=== PATIENT | female | born 1965 | race Caucasian/White ===

== ENCOUNTER 2021-01-09 08:16 | Outpatient (CLI) | payer OTHER, SELFPAY ==
--- NOTE | 2021-01-09 08:20 | MM_ITS ---
WS: [id number] BILATERAL DIGITAL SCREENING MAMMOGRAPHY WITH CAD CLINICAL INFORMATION: SCREENING HISTORY: Screening mammogram. No current complaints. COMPARISON: 018 TECHNIQUE: Bilateral CC and MLO views. FINDINGS: Bilateral breast implants appear intact. Scattered fibroglandular densities bilaterally. No suspicious focal mass, asymmetry, calcifications, or architectural distortion. No evidence of malignancy. A few punctate calcifications. MM/[place] [id number] IMPRESSION: BI-RADS: 2-Benign FOLLOW UP: 1 Year Follow-up Recommend return to annual screening mammography.
== END 2021-01-09 08:17 | disposition home or self-care (01) ==
LOC: RADSHAW 08:18
PROVIDERS: Visit Provider Nurse Practitioner Women's Health
DX: Z12.31 Encounter for screening mammogram for malignant neoplasm of breast (principal)
CPT/HCPCS: 77067

== ENCOUNTER 2021-03-20 07:12 | Emergency (ER) | payer OTHER, SELFPAY ==
[2021-03-20 07:15] VITALS: BP 168/91; PULSE 74; RESP 16; TEMP 36.4; O2SAT 99; BMI 37.8
--- NOTE | 2021-03-20 07:19 | XRR_ITS ---
PROCEDURE INFORMATION: Exam: XR Chest Exam date and time: 03/20/2021 7:26 AM Age: 55 years old Clinical indication: Angina; Patient HX: Chest pain off and on since last pm TECHNIQUE: Imaging protocol: XR of the chest. Views: 1 view. COMPARISON: No relevant prior studies available. FINDINGS: Lungs: No acute airspace disease. Pleural spaces: No pleural effusion. Heart/Mediastinum: No cardiomegaly. Bones/joints: Mild degenerative change. XR/XR chest 1V portable [id number] IMPRESSION: No acute airspace or pleural disease.
--- NOTE | 2021-03-20 07:20 | ECG_ITS ---
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 Measurements Intervals [place] Rate: 73 P: 48 [place]: 173 QRS: -10 QRSD: 92 T: 26 QT: 367 QTc: 406 Interpretive Statements SINUS RHYTHM WITH SINUS ARRHYTHMIA LOW QRS VOLTAGE IN PRECORDIAL LEADS [QRS DEFLECTION < 1.0 mV IN CHEST LEADS] No previous ECG available for comparison Electronically Signed On 03-20-2021 19:22:37 CDT by Curtis Menjivar M.D. [id number]
[2021-03-20 07:28] VITALS: O2SAT 97
--- NOTE | 2021-03-20 08:06 | W.ED.ABDPA2 ---
HPI - Abdominal Pain General: Chief Complaint: Abdominal Pain Stated Complaint: Chest Pains/Pressure Time Seen by Provider: 03/20/21 07:12 History of Present Illness: HPI narrative: 55-year-old female presents emergency room with epigastric pain radiating into the right upper quadrant and into her back. States it feels like really bad heartburn she has had similar episodes in the past but not nearly as intense. No vomiting or diarrhea no acholic growth she has not had any shortness of breath. She is not really noticed any triggering foods said yesterday began after she drank some water. MD elicited complaint: abdominal pain Onset (ago): hour(s) Pain Consistency: constant Location: Epigastric Severity: severe Quality: cramping and aching Radiation: back Migration to: RUQ Exacerbating factors: eating Relieving factors: nothing Associated Symptoms: Reports anorexia, belching, bloating, GI cramping, nausea, poor appetite and vomiting; Denies change in bowel habits, change in stool character, chills, coffee ground emesis, constipation, diarrhea, dyspepsia, dysuria, excessive flatus, fever(s), heartburn, hematochezia, hematuria, hematemesis, fecal incontinence, loose stools, melena and syncope Treatments prior to arrival: prescription analgesics Review of Systems Const: Denies: fever(s) or chills ENMT: Denies: throat pain, ear or mastoid pain, nasal discharge or nasal congestion Card: Denies: syncope Resp: Denies: dyspnea, productive cough or non-productive cough GI: Reports: nausea, vomiting, bloating, GI cramping and belching; Denies: hematemesis, coffee ground emesis, heartburn, diarrhea, constipation, excessive flatus, fecal incontinence, change in bowel habits, change in stool character, hematochezia or melena : Denies: dysuria or hematuria Skin/Breast: Denies: rash or pruritus PFSH ED PFSH: Medical History Migraine Obesity, unspecified Surgical History H/O: hysterectomy (~2008) TVH/BSO with urethral sling, [facility]. History of augmentation mammoplasty 1995: Saline, revision 2002 History of nasal sinusotomy 2005 - Dr. Abebe [facility] History of pubovaginal sling 2009 Urethral sling, completed at the time of her hysterectomy-- due to urine frequency and minor stress incontinence Family History Father Heart disease Diabetes Emphysema lung Mother Heart disease Hypertension Osteoporosis Social History Smoking and tobacco status: never smoked Second hand smoke exposure: Yes Alcohol intake: never Marital status: Current occupational status: employed Sexually active: Yes Female Reproductive History: Para: 2 Spontaneous abortions: No Physical Exam Const: COMMON NORMALS: no acute distress GENERAL APPEARANCE: cooperative and comfortable ORIENTATION/CONSCIOUSNESS: Yes awake, Yes oriented to person, Yes oriented to place and Yes oriented to time HENMT: COMMON NORMALS: normocephalic, atraumatic and hearing grossly normal bilaterally HEAD & SCALP: normocephalic and atraumatic Neck/C-Spine: COMMON NORMALS: no JVD Resp: COMMON NORMALS: normal respiratory effort, No retractions, No use of accessory muscles and clear to auscultation bilaterally AUSCULTATION: clear to auscultation bilaterally Cardio: COMMON NORMALS: no JVD, regular rate, regular rhythm and No murmurs present (Cardio) RATE: regular rate RHYTHM: regular rhythm GI: COMMON NORMALS: Soft to palpation and No hepatosplenomegaly present AUSCULTATION: Yes normoactive bowel sounds PALPATION: Yes Soft to palpation, Yes Tenderness to palpation present (GI) (epigadstric) Details: RUQ, No Guarding due to palpation present (GI) and Yes No hepatosplenomegaly present Extremity: COMMON NORMALS: normal to inspection, capillary refill normal, no clubbing, cyanosis or edema, no calf tenderness and no pedal edema Neuro: SENSORIUM/ORIENTATION: Yes oriented to person, Yes oriented to place and Yes oriented to time Skin: COMMON NORMALS: no rashes or lesions noted GENERAL SKIN EXAM: no rashes or lesions noted Course Vital Signs: Vital signs: Vital Signs Temperature 97.5 F L 03/20/21 07:15 Pulse Rate 72 03/20/21 12:18 Respiratory Rate 12 03/20/21 12:18 Blood Pressure 131/91 03/20/21 12:18 Pulse Oximetry 97 03/20/21 12:18 MDM - Abdominal Pain MDM Narrative: Medical decision making narrative: Mild cholecystitis without evidence of obstruction. She is doing better. We will discharge her home on hydrocodone and Zofran were going to get her set up for general surgery. Return if has further problems discussed dietary adjustments until she is able to have a cholecystectomy. Lab Data: Labs: Lab Results 03/20/21 03/20/21 03/20/21 Range/Units 07:40 07:40 07:40 WBC 6.4 (4.0-10.0) 10^3/ uL RBC 4.76 (4.1-5.3) 10^6/u L Hgb 15.5 H (11.5-15.3) g/dL Hct 46.6 (37.0-47.0) % MCV 97.9 (81-99) fL MCH 32.6 (28.0-34.0) pg MCHC 33.3 (30.0-36.0) g/dL RDW 12.5 (12.1-15.1) % Plt Count 239 (130-400) 10^3/c mm MPV 10.5 H (7.4-10.4) fL Neut % (Auto) 54.0 % Lymph % (Auto) 24.5 % Whitley % (Auto) 10.5 % Eos % (Auto) 8.6 % Baso % (Auto) 1.6 % Neut # (Auto) 3.45 (1.8-7.7) 10^3/u L Lymph # (Auto) 1.6 (0.8-4.8) 10^3/u L Whitley # (Auto) 0.7 (0.2-0.9) 10^3/u L Eos # (Auto) 0.6 (0.0-0.8) 10^3/u L Baso # (Auto) 0.1 (0.0-0.1) 10^3/u L Nucleated RBC % (a uto) 0 % Nucleated RBCs # 0.0 /100WBC Sodium 136 (136-145) mmol/L Potassium 4.4 (3.5-5.1) mmol/L Chloride 105 (98-107) mmol/L Carbon Dioxide 21 L (22-29) mmol/L Anion Gap 14.4 (5-19) BUN 12 (6-20) mg/dL Creatinine 0.7 (0.5-0.9) mg/dL GFR Calculation 87.5 L (90-130) mL/min Glucose 116 H (65-115) mg/dL Calculated Osmolal ity 283 L (285-295) mOsm/k g Calcium 9.1 (8.5-10.5) mg/dL Total Bilirubin 0.4 (0.15-1.2) mg/dL AST 26 (0-32) U/L ALT 39 H (0-33) U/L Alkaline Phosphata se 90 (35-105) IU/L Troponin T Baselin e 6 (0-10) ng/L Troponin T 120 Min [place] (0-10) ng/L Delta Troponin T (0-10) ABS# Total Protein 6.6 (6.6-8.7) g/dL Albumin 4.5 (3.5-5.2) g/dL Globulin 2.1 (1.3-4.6) g/dL Urine Color (Yellow) Urine Appearance (CLEAR) Urine pH (5-7) Ur Specific Gravit y (1.005-1.030) Urine Protein (Negative) Urine Glucose (UA) (Normal) Urine Ketones (Negative) Urine Blood (Negative) Urine Nitrate (Negative) Urine Bilirubin (Negative) Urine Urobilinogen (Negative) mg/dL Ur Leukocyte Lacey ase (Negative) 03/20/21 03/20/21 Range/Units 09:50 10:31 WBC (4.0-10.0) 10^3/ uL RBC (4.1-5.3) 10^6/u L Hgb (11.5-15.3) g/dL Hct (37.0-47.0) % MCV (81-99) fL MCH (28.0-34.0) pg MCHC (30.0-36.0) g/dL RDW (12.1-15.1) % Plt Count (130-400) 10^3/c mm MPV (7.4-10.4) fL Neut % (Auto) % Lymph % (Auto) % Whitley % (Auto) % Eos % (Auto) % Baso % (Auto) % Neut # (Auto) (1.8-7.7) 10^3/u L Lymph # (Auto) (0.8-4.8) 10^3/u L Whitley # (Auto) (0.2-0.9) 10^3/u L Eos # (Auto) (0.0-0.8) 10^3/u L Baso # (Auto) (0.0-0.1) 10^3/u L Nucleated RBC % (a uto) % Nucleated RBCs # /100WBC Sodium (136-145) mmol/L Potassium (3.5-5.1) mmol/L Chloride (98-107) mmol/L Carbon Dioxide (22-29) mmol/L Anion Gap (5-19) BUN (6-20) mg/dL Creatinine (0.5-0.9) mg/dL GFR Calculation (90-130) mL/min Glucose (65-115) mg/dL Calculated Osmolal ity (285-295) mOsm/k g Calcium (8.5-10.5) mg/dL Total Bilirubin (0.15-1.2) mg/dL AST (0-32) U/L ALT (0-33) U/L Alkaline Phosphata se (35-105) IU/L Troponin T Baselin e (0-10) ng/L Troponin T 120 Min [place] 6.00 (0-10) ng/L Delta Troponin T 0 (0-10) ABS# Total Protein (6.6-8.7) g/dL Albumin (3.5-5.2) g/dL Globulin (1.3-4.6) g/dL Urine Color Straw (Yellow) Urine Appearance Clear (CLEAR) Urine pH 5 (5-7) Ur Specific Gravit y 1.015 (1.005-1.030) Urine Protein Neg (Negative) Urine Glucose (UA) Norm (Normal) Urine Ketones Negative (Negative) Urine Blood Neg (Negative) Urine Nitrate Negative (Negative) Urine Bilirubin Neg (Negative) Urine Urobilinogen Norm (Negative) mg/dL Ur Leukocyte Lacey ase Negative (Negative) Discharge Plan Discharge Patient Disposition: Home Clinical Impression: Cholecystitis Condition: Stable Prescriptions: New hydrocodone-acetaminophen 5-325 mg tablet 1 tab PO Q6H PRN (Reason: pain) Qty: 25 RF: 0 Zofran 4 mg tablet 4 mg PO Q6H PRN (Reason: nausea and vomiting) Qty: 20 RF: 0 No Action fluticasone propionate 50 mcg/actuation spray,suspension 1 spray INTRANASAL BID PRN (Reason: allergy symptoms) RF: 0 cetirizine [Zyrtec] 10 mg tablet 10 mg PO DAILY PRN (Reason: allergy symptoms) RF: 0 zolmitriptan [Zomig] 5 mg tablet See Rx Instructions PO .COMPLEX Qty: 30 RF: 3 estradiol 1 mg tablet 1 mg PO DAILY 90 Days Qty: 90 RF: 4 Yuvafem 10 mcg tablet See Rx Instructions .ROUTE .COMPLEX RF: 0 Discharge Orders: Discharge ED (Routine); Ordered 03/20/21 Ordered By: Irving Gibson Discharge Diet: As Directed Discharge Activity: Increase activity as tolerated Patient Instructions: Opioid Safety Coding Level of Care Code ED Director Of Software Development for Marie Fwd Exam Comprehensive
--- NOTE | 2021-03-20 08:12 | US_ITS ---
WS: [id number] RIGHT UPPER QUADRANT ULTRASOUND HISTORY: abd pain COMPARISON: None available. Liver: 19.4 cm in length. Markedly enlarged liver with decreased attenuation and coarsened echotextur e. Loss of the normal portal triads. Gallbladder: Slightly contracted gallbladder with stones and sludge. CBD: 0.5 cm Pancreas: Poorly visualized. Right kidney: 9.9 cm in length. Normal size and echogenicity. No hydronephrosis or mass. Aorta and IVC: Unremarkable abdominal aorta and IVC. No ascites. US/US gall bladder [id number] IMPRESSION: 1. Contracted gallbladder with stones and sludge. Findings suspicious for acut e cholecystitis. No bile duct dilatation. 2. Marked hepatomegaly and hepatic steatosis.
[2021-03-20 08:15] LABS: Basophils # 0.1 10^3/uL (0.0-0.1); Basophils % 1.6 %; Eosinophils # 0.6 10^3/uL (0.0-0.8); Eosinophils % 8.6 %; Hematocrit 46.6 % (37.0-47.0); Hemoglobin 15.5 g/dL (11.5-15.3); Lymphocytes # 1.6 10^3/uL (0.8-4.8); Lymphocytes % 24.5 %; Mean Corpuscular HGB Conc 33.3 g/dL (30.0-36.0); Mean Corpuscular Hemoglobin 32.6 pg (28.0-34.0); Mean Corpuscular Volume 97.9 fL (81-99); Mean Platelet Volume 10.5 fL (7.4-10.4); Monocytes # 0.7 10^3/uL (0.2-0.9); Monocytes % 10.5 %; Neutrophils # 3.45 10^3/uL (1.8-7.7); Nucleated Red Blood Cells % 0 %; Platelet Count 239 10^3/cmm (130-400); Red Blood Count 4.76 10^6/uL (4.1-5.3); Red Cell Distribution Width 12.5 % (12.1-15.1); White Blood Count 6.4 10^3/uL (4.0-10.0)
[2021-03-20 08:43] LABS: Alanine Aminotransferase 39 U/L (0-33); Albumin Level 4.5 g/dL (3.5-5.2); Alkaline Phosphatase 90 IU/L (35-105); Aspartate Amino Transferase 26 U/L (0-32); Blood Urea Nitrogen 12 mg/dL (6-20); Calcium 9.1 mg/dL (8.5-10.5); Carbon Dioxide 21 mmol/L (22-29); Chloride 105 mmol/L (98-107); Globulin 2.1 g/dL (1.3-4.6); Glomerular Filtration Rate 87.5 mL/min (90-130); Glucose 116 mg/dL (65-115); Osmolality Calculated 283 mOsm/kg (285-295); Sodium 136 mmol/L (136-145); Total Bilirubin 0.4 mg/dL (0.15-1.2); Total Protein 6.6 g/dL (6.6-8.7)
[2021-03-20 08:46] LABS: Troponin(5th) Baseline 6 ng/L (0-10)
[2021-03-20 08:51] LABS: Anion Gap 14.4 (5-19); Potassium 4.4 mmol/L (3.5-5.1)
--- NOTE | 2021-03-20 09:03 | CT_ITS ---
WS: [id number] CT ABDOMEN AND PELVIS WITH CONTRAST HISTORY: Abdominal pain with pressure. TECHNIQUE: Imaging performed of the abdomen and pelvis with IV contrast. Single phase imaging of the abdomen. Coronal and sagittal reformats are submitted. All CT scans at [facility] use at least one of these dose optimization techniques: automated exposure control; mA and/or kV adjustment per patient size (includes targeted exams where dose is matched to clinical indication); or iterativ e reconstruction. IV CONTRAST: Omnipaque 300; 95 mL IV. Oral contrast: No DLP: 1848.69 mGy.cm COMPARISON: Gallbladder ultrasound 03/20/2021. Lower thorax: Lung bases are clear. Heart is normal size. No hiatal hernia. Bilateral breast implants . Liver/biliary system: Moderate hepatomegaly. Liver size is not as significant by CT as seen on the ul trasound. There is mild hepatic steatosis. No bile duct dilatation. Normal portal vein. Gallbladder: Gallbladder is lobulated. There is mild hyperemia of portions of the gallbladder wall. T he sludge and stones identified by ultrasound are not as apparent. Pancreas: Normal size pancreas and pancreatic duct. No adjacent inflammation. Spleen: Normal size spleen. No mass or infarct. Adrenal glands: Normal. Right kidney: Normal. Left kidney: Normal. Aorta: Normal. Lymphadenopathy: None. Free fluid: None. GI tract: Nondistended stomach. No GI tract obstruction. The appendix is normal. No mucosal thickenin g or edema. No significant diverticular disease. Abdominal wall: Small fat-containing umbilical hernia. Pelvis: No free fluid or adenopathy within the pelvis. Prior hysterectomy. Bones: Unremarkable. CT/CT abdomen pelvis w con* [id number] IMPRESSION: 1. No biliary duct dilatation. 2. Mild hyperemia involving the gallbladder wall. The stones and sludge seen o n the recent ultrasound are not as apparent by CT. Findings still suspicious fo r mild acute cholecystitis. 3. Moderate hepatic steatosis and hepatomegaly. 4. Normal appendix.
--- NOTE | 2021-03-20 09:20 | ECG_ITS ---
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 Measurements Intervals [place] Rate: 61 P: 13 SC: 178 QRS: -11 QRSD: 76 T: 15 QT: 392 QTc: 395 Interpretive Statements SINUS RHYTHM WITH SINUS ARRHYTHMIA MINIMAL VOLTAGE CRITERIA FOR LVH, CONSIDER NORMAL VARIANT [MEETS CRITERIA IN ONE OF: R(aVL), S(V1), R(V5), R(V5/V6)+S(V1)] Compared to ECG 03/20/2021 07:23:05 No significant changes Electronically Signed On 03-20-2021 19:25:55 CDT by Curtis Menjivar M.D. [id number]
[2021-03-20 09:46] VITALS: BP 105/70; PULSE 70; RESP 23; O2SAT 100
[2021-03-20 10:13] LABS: Add Urine Microscopic? NO; Charge for UA Resulting for Rev
[2021-03-20] MEDS: iohexol 300 mg/mL 100 mL Btl IV (10:18)
[2021-03-20 10:28] LABS: Bilirubin Urine Neg (Negative); Blood Urine Neg (Negative); Glucose Urine UA Norm (Normal); Ketones Urine Negative (Negative); Leukocyte Esterase Urine Negative (Negative); Nitrate Urine Negative (Negative); Protein Urine Neg (Negative); Specific Gravity, Urine 1.015 (1.005-1.030); Urine Appearance Clear (CLEAR); Urine Color Straw (Yellow); Urobilinogen Urine Norm (Negative); pH Urine 5 (5-7)
[2021-03-20 10:48] VITALS: BP 121/82; PULSE 78; RESP 12; O2SAT 99
[2021-03-20 10:55] LABS: Troponin 5 2HR Delta 0 ABS# (0-10)
--- NOTE | 2021-03-20 12:09 | DCPLANNER ---
biofuels plant manager had message to schedule a follow up appointment for patient with general surgery for cholecystitis. biofuels plant manager emailed patients information to both Reina and Lesvia at [facility] General Surgery. Patients information will be printed and reviewed. Clinic will call patient with appointment information.
[2021-03-20 12:18] VITALS: BP 131/91; PULSE 72; RESP 12; O2SAT 97
--- NOTE | 2021-03-21 14:25 | DCPLANNER ---
Patient has a follow up appointment scheduled for Friday, March 26, 2021 at 3:[address] Liz. Clinic will call patient with appointment information.
--- NOTE | 2021-05-28 08:03 | DCPLANNER ---
Patient had a follow up appointment scheduled for 03.26.[address] Liz at general surgery - patient did attend appointment.
== END 2021-03-20 12:20 | disposition home or self-care (01) ==
PROVIDERS: Emergency Provider Family Medicine
DX: K81.9 Cholecystitis, unspecified (principal); Z77.22 Contact with and (suspected) exposure to environmental tobacco smoke (acute) (chronic)
CPT/HCPCS: 71045; 74177; 76705; 80053; 81003; 84484; 85025; 93005; 99284; Q9967

== ENCOUNTER → 2021-03-27 08:18 | Outpatient (BNVA) | payer OTHER, SELFPAY | PROVIDERS: Visit Provider Surgery | DX: Z20.822 Contact with and (suspected) exposure to COVID-19 (principal); K81.9 Cholecystitis, unspecified | CPT/HCPCS: 87635 ==

== ENCOUNTER 2021-03-29 10:38 | Day surgery (SDC) | payer OTHER, SELFPAY ==
[2021-03-28 13:49] VITALS: BMI 39.4
--- NOTE | 2021-03-29 11:03 | P.ANESASSM_ITS ---
Pre-Anesthetic Assessment Pre-Anesthetic Assessment: Height/Weight: Height 1.63 m Weight 104.326 kg Preop Diagnosis: cholelithiasis Proposed Procedure: Operation Date: 03/29/21 12:00 Proposed Procedures p Laparoscopic Cholecystectomy 72523 K81.9(Not Applicable) - Adrian Liz MD Was Beta Maria Del Rosario taken within 24 hours: N/A Was Clonidine taken within 24 hours: N/A Last intake: Intake Last Liquid Date 03/28/21 Last Liquid Time 21:30 Last Solid Date 03/28/21 Last Solid Time 19:00 Social: Social History: No alcohol and No tobacco Exam: Pre-Anes Outpt Exam: alert, oriented x 3, clear to auscultation bilaterally and regular rate & rhythm Airway: Submandibular: WNL Cervical ROM: WNL MP: 2 Pulmonary: Pulmonary: None reported CV/HEM: Comments: Palpitations : Comments: Cystitis Hepatic: Hepatic: None reported GI: GI: None reported Neuropsych: Neuropsych: MILLER (migraine ) Anesthetic Plan: ASA status: 2 Anesthesia: General PFSH Anesthesia PFSH: Medical History Migraine Surgical History H/O: hysterectomy (~2008) TVH/BSO with urethral sling, [facility]. History of augmentation mammoplasty 1994: Saline, revision 2001 History of nasal sinusotomy 2004 - Dr. Abebe, [facility] History of pubovaginal sling 2009 Urethral sling, completed at the time of her hysterectomy-- due to urine frequency and minor stress incontinence Family History Father Heart disease Diabetes Emphysema lung Mother Heart disease Hypertension Osteoporosis Social History Smoking and tobacco status: never smoked Second hand smoke exposure: Yes Alcohol intake: never Marital status: Current occupational status: employed Sexually active: Yes Female Reproductive History: Para: 2 Spontaneous abortions: No Data Anesthesia Cardiac Studies: No Data to Display
--- NOTE | 2021-03-29 11:04 | W.PM.OPSUD ---
Surgery/Procedure H&P Update DATE OF PROCEDURE: March 29, 2021 DATE H&P PERFORMED: 03/26/21 H&P UPDATE INFORMATION: I have reviewed H&P completed within last 30 days, I have examined patient prior to procedure and No changes to prior documentation PREOP DIAGNOSIS: cholelithiasis PLANNED PROCEDURE: Operation Date: 03/29/21 12:00 Proposed Procedures p Laparoscopic Cholecystectomy 30432 K81.9(Not Applicable) - Adrian Liz MD
[2021-03-29] MEDS: sodium chloride 0.9% 1,000 ML 30 ML IV (11:18)
[2021-03-29] MEDS: scopolamine 1.5 Patch 1 PATCH TRANSDERMA (11:18)
[2021-03-29] MEDS: ondansetron 2 mg/ML SDV 2 mL 4 MG IVP (11:18)
[2021-03-29 11:19] VITALS: BP 151/100; PULSE 76; RESP 18; TEMP 36.4; O2SAT 96
--- NOTE | 2021-03-29 13:52 | P.OP_ITS ---
Operative Report Date of procedure: March 29, 2021 Pre-op Diagnosis: Cholelithiasis Post-op diagnosis: same Procedure Done: Laparoscopic cholecystectomy Specimens removed/disposition: Gallbladder Surgeon: Adrian Liz Anesthesia: General Condition: stable Disposition: PACU Procedure: The patient was taken to the operating room and was intubated under general anesthesia. After the antibiotic had been administered, the abdomen was prepped and draped in a sterile manner. Using a #15 blade, a 1 centimeter infraumbilical curvilinear incision was made and using an open Jenaro technique the peritoneal cavity was entered. A 10 millimeter port was placed and 15 millimeters of pneumoperitoneum was created. A 10 millimeter, 30 degrees scope was then introduced. Three 5 millimeter ports were placed in the epigastric, midclavicular and the anterior axillary line two fingerbreadths below the costal margin on the right side under the direct visualization. Ratcheted forceps were introduced into the lateral most port and was used to retract the fundus of the gallbladder cephalad and using forceps the infundibulum of the gallbladder was retracted laterally. Using L-hook cautery the peritoneum overlying the Calot's triangle was opened medially and laterally until the cystic duct and the cystic artery were skeletonized. Dissection was carried along the body of the gallbladder and after ensuring critical view of safety, 4 clips applied on the cystic duct and 3 clips applied on the cystic artery and cut leaving, 3 clips on the remaining portion of the duct and 2 clips on the remaining portion of the artery. The rest of the gallbladder was dissected off the liver using L-hook cautery. There was no bleeding or bile leaking noted from the gallbladder fossa and the clips appeared to be in place. An EndoCatch bag was introduced to r emove the gallbladder. All the ports were removed under direct visualization and there was no bleeding noted from the port sites. The fascia of the umbilicus was closed using [id number] 0 Vicryl sutures and the subcutaneous tissue was approximated using 3-0 Vicryl sutures. The skin at all four ports were closed using 4-0 Monocryl and Dermabond. A total of 10 millimeters of 0.5% Marcaine was infiltrated around the port sites. The patient was stable throughout the procedure.
[2021-03-29 14:04] VITALS: BP 141/74; PULSE 91; RESP 20; TEMP 36.6; O2SAT 98
[2021-03-29 14:10] VITALS: BP 144/80; PULSE 71; RESP 18; O2SAT 100
[2021-03-29 14:15] VITALS: BP 143/83; PULSE 70; RESP 20; TEMP 36.6; O2SAT 97
[2021-03-29 14:20] VITALS: BP 140/92; PULSE 70; RESP 18; TEMP 36.6; O2SAT 97
--- NOTE | 2021-03-29 14:40 | ANE.PACU2 ---
Inpatient post-anesthesia follow up: Airway intact: Yes Vital signs: Temperature 97.9 F Pulse Rate 70 Respiratory Rate 18 Blood Pressure 140/92 Pulse Oximetry 97 Oxygen Delivery Me thod Room Air Oxygen Flow Rate 6 Fraction of Inspir ed Oxygen Hydration adequate: Yes Nausea and vomiting: No Pain level: 3 Mental status: Baseline
[2021-03-29] MEDS: HYDROcodone-acetaminophen 5-325 mg Tablet 1 TAB PO (14:48)
[2021-03-29 15:18] VITALS: BP 145/85; PULSE 63; RESP 18; O2SAT 97
== END 2021-03-29 15:50 | disposition home or self-care (01) ==
PROVIDERS: Visit Provider Surgery
PROC: 0FT44ZZ Resection of Gallbladder, Percutaneous Endoscopic Approach (ICD-10-PCS; CPT 47562; principal; 2021-03-29 11:50)
DX: K80.10 Calculus of gallbladder with chronic cholecystitis without obstruction (principal)
CPT/HCPCS: 47562; 88304; 96365; 96374; J0690; J1100; J2405; J2704; J2710; J3010; J3490; J7030

== ENCOUNTER → 2021-06-12 10:07 | Outpatient (BNVA) | payer OTHER, SELFPAY | PROVIDERS: Visit Provider Nurse Practitioner Women's Health | DX: R30.0 Dysuria (principal) | CPT/HCPCS: 81000; 87086 ==

== ENCOUNTER → 2021-08-07 08:56 | Outpatient (BNVA) | payer OTHER, SELFPAY | PROVIDERS: Visit Provider Obstetrics & Gynecology | DX: R30.0 Dysuria (principal) | CPT/HCPCS: 81000; 87077; 87086; 87184 ==

== ENCOUNTER 2021-09-14 12:51 | Outpatient (CLI) | payer OTHER, SELFPAY ==
--- NOTE | 2021-09-14 13:03 | MM_ITS ---
WS: [id number] DIAGNOSTIC RIGHT DIGITAL MAMMOGRAM with displacement views and CAD RIGHT breast ultrasound, limited HISTORY: RIGHT BREAST LUMP COMPARISON: 01/09/2021, 02/25/2018 Technique: CC, MLO and ML views. Spot compression RIGHT CC. Breast composition: There are scattered areas of fibroglandular density. Implants are intact. Partia l calcification around the implant. Triangular marker is noted in the upper outer quadrant RIGHT [address]. No underlying abnormality is identified. There is dense calcification adjacent to the capsular im plant which could be the palpable area. No suspicious calcifications. RIGHT breast ultrasound, limited. Ultrasound is directed to the area of palpable abnormality. There is no mass or shadowing. No cystic or solid change. MM/[place] [id number] IMPRESSION: BI-RADS: 2-Benign FOLLOW UP: 1 Year Follow-up
== END 2021-09-14 12:52 | disposition home or self-care (01) ==
PROVIDERS: PCP Nurse Practitioner Women's Health; Visit Provider Nurse Practitioner Women's Health
DX: N63.11 Unspecified lump in the right breast, upper outer quadrant (principal); Z98.82 Breast implant status
CPT/HCPCS: 76642; 77065

== ENCOUNTER → 2021-09-18 12:20 | Outpatient (BNVA) | payer OTHER, SELFPAY | PROVIDERS: PCP Nurse Practitioner Women's Health; Visit Provider Nurse Practitioner Women's Health | DX: Z20.828 Contact with and (suspected) exposure to other viral communicable diseases (principal) | CPT/HCPCS: 87426 ==

== ENCOUNTER → 2021-09-26 09:38 | Outpatient (BNVA) | payer OTHER, SELFPAY | PROVIDERS: PCP Nurse Practitioner Women's Health; Visit Provider Nurse Practitioner Family | DX: R05.9 Cough, unspecified (principal); R06.02 Shortness of breath | CPT/HCPCS: 71046; 80053 ==

== ENCOUNTER 2021-11-01 20:00 | Outpatient (CLI) | payer OTHER, SELFPAY | END 2021-11-01 20:01 | disposition home or self-care (01) | LOC: SLEEP 11-05 08:19 | PROVIDERS: PCP Nurse Practitioner Women's Health; Visit Provider Nurse Practitioner Family | DX: G47.33 Obstructive sleep apnea (adult) (pediatric) (principal); Z99.89 Dependence on other enabling machines and devices | CPT/HCPCS: 95811 ==

== ENCOUNTER 2022-10-09 07:43 | Outpatient (CLI) | payer OTHER, SELFPAY ==
--- NOTE | 2022-10-09 07:50 | MM_ITS ---
WS: [id number] BILATERAL SCREENING DIGITAL BREAST MAMMOGRAPHY WITH ANA DISPLACEMENT VIEWS. CAD PERFORMED. HISTORY: SCREENING COMPARISON: 09/14/2021, 01/09/2021 and 02/25/2018 Bilateral craniocaudal and mediolateral oblique views are performed with tomosynthesis and SM. Ana displacement views in CC and MLO projection also performed. Breasts composition: The breasts are heterogeneously dense, which may obscure small masses. Retropec yancy implants are intact. No capsular contraction. No suspicious mass or calcification. MM/[place] [facility] [place] [id number] IMPRESSION: BI-RADS: 2-Benign FOLLOW-UP: 1 Year Follow-up
== END 2022-10-09 07:44 | disposition home or self-care (01) ==
LOC: RAD 07:44
PROVIDERS: PCP Nurse Practitioner Family; Visit Provider Nurse Practitioner Family
DX: Z12.31 Encounter for screening mammogram for malignant neoplasm of breast (principal)
CPT/HCPCS: 77063; 77067

== ENCOUNTER → 2023-04-14 09:20 | Outpatient (BNVA) | payer OTHER, SELFPAY | PROVIDERS: PCP Nurse Practitioner Family; Visit Provider Nurse Practitioner Family | DX: N95.1 Menopausal and female climacteric states (principal); I10 Essential (primary) hypertension; G43.909 Migraine, unspecified, not intractable, without status migrainosus; Z83.3 Family history of diabetes mellitus; E55.9 Vitamin D deficiency, unspecified; R63.8 Other symptoms and signs concerning food and fluid intake; R53.83 Other fatigue; J32.0 Chronic maxillary sinusitis; E66.9 Obesity, unspecified; K04.7 Periapical abscess without sinus | CPT/HCPCS: 80053; 80061; 82306; 83036; 84439; 84443; 84481 ==

== ENCOUNTER → 2023-09-09 09:38 | Outpatient (BNVA) | payer OTHER, SELFPAY | PROVIDERS: PCP Nurse Practitioner Family; Visit Provider Nurse Practitioner Family | DX: R00.2 Palpitations (principal); G43.909 Migraine, unspecified, not intractable, without status migrainosus; I10 Essential (primary) hypertension; E55.9 Vitamin D deficiency, unspecified | CPT/HCPCS: 80053; 80061; 82306 ==

== ENCOUNTER → 2024-06-28 10:22 | Outpatient (BNVA) | payer BC, SELFPAY | PROVIDERS: PCP Nurse Practitioner Family; Visit Provider Nurse Practitioner Family | DX: I10 Essential (primary) hypertension (principal) | CPT/HCPCS: 80053; 85025 ==

== ENCOUNTER → 2024-07-01 10:24 | Outpatient (BNVA) | payer BC, SELFPAY | PROVIDERS: PCP Nurse Practitioner Family; Visit Provider Internal Medicine Cardiovascular Disease | DX: Z41.9 Encounter for procedure for purposes other than remedying health state, unspecified (principal); R94.31 Abnormal electrocardiogram [ECG] [EKG]; E66.9 Obesity, unspecified | CPT/HCPCS: 93005 ==

== ENCOUNTER → 2024-08-26 11:57 | Outpatient (BNVA) | payer BC, SELFPAY | PROVIDERS: PCP Nurse Practitioner Family; Visit Provider Nurse Practitioner Family | DX: I10 Essential (primary) hypertension (principal) | CPT/HCPCS: 80053; 85025 ==

== ENCOUNTER 2024-10-26 11:20 | Outpatient (CLI) | payer BC, SELFPAY ==
--- NOTE | 2024-10-26 | MM_ITS ---
WS: [id number] Bilateral screening 3D tomosynthesis digital mammogram, 10/26/2024 11:39 AM Clinical Data: ANNUAL SCREENING Comparison: 10/09/2022, 09/14/2021, 01/09/2021, 02/25/2018, 02/24/2017, 02/07/2016, 03/30/2009. Findings: No spiculated masses or clustered calcifications are seen. There are no secondary signs of carcinoma . The augmentation mammoplasty implants are intact. MM/MM scr BI tomosynthesis [id number] Impression: Negative bilateral mammogram unchanged. Recommend annual screening mammograms. BIRADS: 2 - Benign. FOLLOW UP: 1 Year Follow-up DENSITY: There are scattered areas of fibroglandular density. The CAD food checkers and cashiers supervisor was used
== END 2024-10-26 11:36 | disposition home or self-care (01) ==
PROVIDERS: PCP Electrodiagnostic Medicine; Visit Provider Electrodiagnostic Medicine
DX: Z12.31 Encounter for screening mammogram for malignant neoplasm of breast (principal); Z98.82 Breast implant status
CPT/HCPCS: 77063; 77067

== ENCOUNTER 2025-05-09 10:24 | Day surgery (SDC) | payer OTHER, SELFPAY ==
[2025-05-09] VITALS (16 sets, daily range): BP systolic 86–151; BP diastolic 49–81; PULSE 81–130; RESP 12–27; TEMP 36.2–37.1; O2SAT 92–98
--- OUTSIDE RECORDS SUMMARY | 2025-05-09 10:32 | XMS_ITS | Encounter Summary ---
Author Organization [facility] Address [address] [place] [address] Care Team Providers Care Sourcing Engineer Name Role Phone Unavailable Primary Care Provider Unavailabl e Encounter Details Date Type Department Care Team (Late st Contact Info) Description 07/08/2024 Abstract [facility] Operating Room [address] [address] [place] [address] Puma Chang MD [address] [address] Social History Tobacco Use Types Packs/Day Years Used Date Smoking Tobacco: Never Assessed Comments Unknown Sex and Gender Information Value Date Recorded Sex Assigned at Not on file Legal Sex Female 12:54 PM CDT Gender Identity Not on file Sexual Orientation Not on file documented as of this encounter Plan of Treatment Not on file documented as of this encounter Visit Diagnoses Not on filedocumented in this encounter
--- OUTSIDE RECORDS SUMMARY | 2025-05-09 10:32 | XMS_ITS | Clinical Summary ---
Author Organization [facility] Address [address] [place] [address] Phone Care Team Providers Care Air Valve Repairer Name Role Phone Unavailable Primary Care Provider Unavailabl e Allergies No known active allergies Medications cetirizine (ZyrTEC) 10 mg tablet Take 10 mg by mouth daily. Active ZOLMITRIPTAN ORAL Take 5 mg by mouth 1 time daily as needed for Other (See Comment) (migranes). Active lisinopriL (PRINIVIL) 10 mg tablet Take 10 mg by mouth daily. Active HYDROcodone-cherie taminophen 2.5-108 mg/5 mL SolutionIndicat ions:Post-op pain Take 15 mL by mouth every 6 hours as needed for Pain, Severe. Max Daily Amount: 60 mL 300 mL 08/24/2024 1:27 PM CDT 08/23/2024 Active ondansetron (ZOFRAN ODT) 4 mg Tablet, Rapid Dissolve Take 1 Tablet (4 mg) by mouth every 8 hours as needed for Nausea. Dissolve tablet on top of tongue, then swallow with saliva. 28 Tablet 08/24/2024 1:27 PM CDT 08/23/2024 Active Active Problems Problem Noted Date Diagnosed Date Class 2 severe obesity due t o excess calories with serious comorbidity and body mass index (BMI) of 38.0 to 38.9 in adult 08/23/2024 Post-operative nausea and vomiting 08/23/2024 Post-operative pain 08/23/2024 History of seasonal allergies 08/23/2024 General medical exam 08/23/2024 Hypertension Migraine Obstructive sleep apnea Overview (08/23/2024): cpap Encounters Date Type Department Care Team Description 04/27/2025 External Device Data STL ABSTRACTION Provider, Abstract 04/26/2025 External Device Data STL ABSTRACTION Provider, Abstract 04/12/2025 External Device Data STL ABSTRACTION Provider, Abstract 03/31/2025 External Device Data STL ABSTRACTION Provider, Abstract 03/31/2025 External Device Data STL ABSTRACTION Provider, Abstract 03/30/2025 External Device Data STL ABSTRACTION Provider, Abstract 03/29/2025 External Device Data STL ABSTRACTION Provider, Abstract 02/22/2025 External Device Data STL ABSTRACTION Provider, Abstract from Last 3 Months Immunizations Immunization Administration Dates Next Due (TDVAX)(7 YRS UP) TETANUS AN D DIPHTHERIA TOXOIDS, ADSORBED (2 LF OF TETANUS TOXOID AND 2 LF OF DIPHTHERIA TOXOID), 0.5ML (PF), IM 06/21/1998 Social History Tobacco Use Types Packs/Day Years Used Date Smoking Tobacco: Never Smokeless Tobacco: Never Tobacco Cessation:Counseling Given: Not Answered Alcohol Use Standard Drinks/Week Comments Not Currently 0 (1 standard drink = 0.6 oz pur e alcohol) Feeling Safe Answer Date Recorded Are you in a relationship wi th someone who hurts you emotionally and/or physically? No 08/23/2024 Food Insecurity Answer Date Recorded Patient needs follow up regardin 03/03/2025 Transportation Needs Answer Date Record ed Patient needs follow up regardin 03/03/2025 Housing Stability Answer Date Recorded Social/Environmental Concerns No concerns Utility Needs Answer Date Recorded Patient needs follow up regardin 03/03/2025 Comments No Sex and Gender Information Value Date Recorded Sex Assigned at Not on file Legal Sex Female 12:54 PM CDT Gender Identity Not on file Sexual Orientation Not on file Last Filed Vital Signs Vital Sign Reading Time Taken Comments Blood Pressure 96/52 08/24/2024 8:13 AM CDT Pulse 49 08/24/2024 8:13 AM CDT Rn no tified Temperature 36.9 C (98.4 F) 08/24/2024 8:13 AM CDT Respiratory Rate 16 08/24/2024 8:13 AM CDT Oxygen Saturation 98% 08/24/2024 4:41 AM CDT Inhaled Oxygen Concentration - - Weight 98.4 kg (217 lb) 08/23/2024 11:42 AM CDT Height 160 cm (5' 3 ) 08/23/2024 11:42 AM CDT Body Mass Index 38.44 08/23/2024 11:42 AM CDT Plan of Treatment Health Maintenance Due Date Last Done Comments Pre-Diabetes and Diabetes Screening 1965 HEPATITIS B VACCINES (1 of 3 - 19+ 3-dose series) 02/1986 HPV/Cotest (21-29) 1988 CERVICAL CANCER SCREENING 1997 HPV/Cotest (30-65) 1997 PAP SMEAR 1997 DTAP/TDAP/TD VACCINES (1 - Tdap) 06/22/1998 06/21/19 98 BREAST CANCER SCREENING 2007 COLORECTAL SCREENING 2012 Colorectal Cancer Screening 2012 FIT-DNA Q 3 years 2012 FIT/FOBT Q 1 year 2012 Flex Sig/CT Colonography Q 5 years 2012 ZOSTER VACCINE (1 of 2) 2017 INFLUENZA VACCINE (#1) 2024 COVID-19 Vaccine ( season) 07/11/202410/2023 Medical Devices Implanted Type Area Bottomer Operator Device Identifier Shelf Expiration Date Model / Serial / Lot Seamguard Endogia 60 Blk [id number] - [id number] Implanted:Qt y: 1 on 08/23/2024 by Puma Chang MD at [facility] Biological N/A: Stomach [employer] [id number] 01/14/2027 12BSGTRI 60B / / [id number] Seamguard Endogia 60 Blk [id number] - [id number] Implanted:Qt y: 1 on 08/23/2024 by Puma Chang MD at [facility] Biological N/A: Stomach [employer] [id number] 01/14/2027 12BSGTRI 60B / / [id number] Seamguard Endogia 60 Prpl [id number] - [id number] Implanted:Qt y: 1 on 08/23/2024 by Puma Chang MD at [facility] Biological N/A: Stomach [employer] [id number] 01/06/2027 12BSGTRI 60P / / [id number] Seamguard Endogia 60 Prpl [id number] - [id number] Implanted:Qt y: 1 on 08/23/2024 by Puma Chang MD at [facility] Biological N/A: Stomach [employer] [id number] 01/06/2027 12BSGTRI 60P / / [id number] Seamguard Endogia 60 Prpl [id number] - [id number] Implanted:Qt y: 1 on 08/23/2024 by Puma Chang MD at [facility] Biological N/A: Stomach [employer] [id number] 01/06/2027 12BSGTRI 60P / / [id number] Claims Account Specialist Endoclip Iii 5mm W/Cliplogic [id number] - [id number] Implanted:Qt y: 1 on 08/23/2024 by Puma Chang MD at [facility] Clip N/A: Stomach [employer] [id number] 05/09/2027 [id number] / / [id number] Breast Insurance RX [facility] Commercial Advance Directives For more information, please contact: [phone] * Full Code (Latest Code Status on File) Date Activated Date Inactivated Comments 08/23/2024 5:47 AM 08/24/2024 4:42 PM
--- OUTSIDE RECORDS SUMMARY | 2025-05-09 10:32 | XMS_ITS | Data Portability ---
Author Organization [facility] Addison Ledesma [facility] [place] Dick, [facility] Address [address] [address] Assessment Encounter Date Assessment Date Assessment LastModified by Organization Details LastModified Time 10/20/2024 10/20/2024 Document scribed by Matteo Rojas Parker. I was present during interview and exam. I have reviewed and agree with above documentation . Dr. Faizan Levy. [email or web address] Not available 10/20/2024 09:52:39 Plan of Treatment Reminders Order Date Submit Date Provider Last Modified By Organization Details Last Modified Time Details Appointments None recorded. Lab urinalysis, complete 2023 dmorrison 47 [facility], [address] [facility], [facility] [address], [place], [address], 4 16:20:27 culture, urine 2023 [facility], [address] [facility] [address] [address], [facility] [address] [place], [address], 4 02:14:44 Referral None recorded. Procedures None recorded. Surgeries None recorded. Imaging MAMMO, screening, bilateral 2023 [facility], [address] [place], [address], 4 08:48:56 Medication Orders zolmitripta n 5 mg disintegrat ing tablet 2023 [facility], [facility] [place], [address] [place], [address], 15:21:02 Patient TargetsNo targets recorded. Patient InstructionsNo instructions recorded. Reason for Referral None Reported. Results Created Date Observation Date Name Description Value Unit Range Abnormal Flag Note LastModifiedBy Organization Detail LastModifiedTime 10/20/20 24 10/20/2024 URINA LYSIS WITH MICRO color YELLOW Not Available [facility] [address], [place], [address], 10/20/2024 10:07:35 10/20/20 24 10/20/2024 URINA LYSIS WITH MICRO clarity CLEAR Not Available [facility] [address] [facility] [address], [place], [address], 10/20/2024 10:07:35 10/20/20 24 10/20/2024 URINA LYSIS WITH MICRO glu NEGATI VE Not Available [facility] [address] [facility] [address], [place], [address], 10/20/2024 10:07:35 10/20/20 24 10/20/2024 URINA LYSIS WITH MICRO bili NEGATI VE Not Available [facility] [address] [facility], [place], [address], 10/20/2024 10:07:35 10/20/20 24 10/20/2024 URINA LYSIS WITH MICRO ket NEGATI VE Not Available [facility] [address], [place], [address], 10/20/2024 10:07:35 10/20/20 24 10/20/2024 URINA LYSIS WITH MICRO S.g 1.025 1.005- 1.025 Not Available [facility] [address], [place], [address], 10/20/2024 10:07:35 10/20/20 24 10/20/2024 URINA LYSIS WITH MICRO pH 7.0 5.0-7. 0 Not Available [facility] [address], [place], [address], 10/20/2024 10:07:35 10/20/20 24 10/20/2024 URINA LYSIS WITH MICRO pro NEGATI VE Not Available [facility] [address], [place], [address], 10/20/2024 10:07:35 10/20/20 24 10/20/2024 URINA LYSIS WITH MICRO uro 0.2 E.U./D L Not Available [facility] [address], [place], [address], 10/20/2024 10:07:35 10/20/20 24 10/20/2024 URINA LYSIS WITH MICRO nit NEGATI VE Not Available [facility] [address], [place], [address], 10/20/2024 10:07:35 10/20/20 24 10/20/2024 URINA LYSIS WITH MICRO blo NEGATI VE Not Available [facility] [address], [place], [address], 10/20/2024 10:07:35 10/20/20 24 10/20/2024 URINA LYSIS WITH MICRO kathi NEGATI VE Not Available [facility] [address], [place], [address], 10/20/2024 10:07:35 10/20/20 24 10/20/2024 URINA LYSIS WITH MICRO WBC 1-3 abnormal Not Available [facility] [address], [place], [address], 10/20/2024 10:07:35 10/20/20 24 10/20/2024 URINA LYSIS WITH MICRO RBC 0-1 Not Available [facility] [address] [facility] [address], [place], [address], 10/20/2024 10:07:35 10/20/20 24 10/20/2024 URINA LYSIS WITH MICRO epi cells 1-2 Not Available [facility] [address] [facility] [address], [place], [address], 10/20/2024 10:07:35 10/20/20 24 10/20/2024 URINA LYSIS WITH MICRO bacteria TRACE OF MUCUS THREAD S abnormal Not Available [facility] [address] [facility] [address], [place], [address], 10/20/2024 10:07:35 10/20/20 24 10/20/2024 URINA LYSIS WITH MICRO other NEGATI VE Not Available [facility] [address] [facility] [address], [place], [address], 10/20/2024 10:07:35 10/20/20 24 10/22/2024 CULTU RE, URINE , ROUTI NE culture, urine, routine SEE NOTE CULTU RE, URINE , ROUTI NE Micro Numbe r: [id number] Test Statu s: Final Speci men Sourc e: Urine , clean catch Speci men Quali ty: Adequ ate Resul t: Less than 10,00 0 CFU/m L of singl e Gram posit melinda organ ism isola amirah. No furth er testi ng will be perfo rmed. If clini edi indic ated, recol lecti on using a metho d to minim ize conta minat ion, with promp t trans ranjana to Urine Cultu re Trans port Tube, is recom vamshi d. Not Available [facility] [address], [place], [address], 10/22/2024 02:14:41 10/26/20 24 10/26/2024 MAMMO marcus bilat eral No observ ation record ed. [email or web address] [facility] [address] [place], [address], 10/27/2024 14:30:41 Result Notes None recorded. Problems Name Problem SNOMED Code Status Onset Date Resolution Date Notes Provider Name and Address Organization Details Recorded Time Migraine 10587872 Active 2023 Katharina rosenbaum [facility] 4 09:31:21 Hormone replacement therapy Active 2023 Katharina Fajardo [facility] 4 09:31:33 Essential hypertension 34380622 Active 2023 Matteo rosenbaum [facility] 4 10:02:31 Problem Notes None recorded. Procedures Surgical History Date Name Laterality Status Provider Name and Address Organization Details Recorded Time 08/24/20 24 laparoscopic sleeve gastrectomy completed [facility] 10/20/2024 09:33:20 Total Hysterectomy completed [facility] charan [facility] 10/20/2024 09:32:26 Breast augmentation w/implt completed [facility] 10/20/2024 09:32:48 Cholecystectomy completed [facility] 10/20/2024 09:33:01 manipulation of displaced nasal septum completed [facility] 10/20/2024 09:33:54 Imaging Results None recorded. Procedure Notes None recorded. Medical Equipment None Reported. Allergies No known drug allergies Medications Name Sig Start Date Stop Date Status Note LastModified by Organization Details LastModified Time losartan 50 mg tablet TAKE 1 TABLET BY MOUTH EVERY DAY 10/20 completed Not Available Not Available Not Available ondansetron HCl 4 mg tablet TAKE 1 TABLET BY MOUTH EVERY 6 HOURS NEEDED FOR NAUSEA 10/20 completed Not Available Not Available Not Available zolmitripta n 5 mg disintegrat ing tablet PLACE 1 TABLET (5 MG) ON TOP OF TONGUE, ALLOW TO DISSOLVE THEN SWALLOW BY TRANSLING UAL ROUTE ONCE; MAY REPEAT AFTER 2HRS, MAX 10 MG/24HRS 2024 active Not Available Not Available Not Avai lable ciprofloxac in 500 mg tablet TAKE 1 TABLET BY MOUTH TWICE DAILY for 7 days active Not Available Not Available No t Available zolmitripta n 5 mg tablet TAKE 1 TABLET BY MOUTH at ONSET of headache, if no RELIEF MAY REPEAT ONE tab in TWO hours max of TWO tabs in 24 hours 10/20 completed Not Available Not Available Not Available cephalexin 500 mg capsule TAKE 1 CAPSULE BY MOUTH THREE TIMES DAILY FOR 10 DAYS 10/20 completed Not Available Not Available Not Available lisinopril 10 mg tablet TAKE 1 TABLET BY MOUTH EVERY DAY 10/20 completed Not Available Not Available Not Available losartan 50 mg-hydrochl orothiazide 12.5 mg tablet TAKE 1 TABLET BY MOUTH EVERY DAY FOR 90 DAYS 10/20 completed Not Available Not Available Not Available ondansetron 4 mg disintegrat ing tablet 10/20 completed Not Available Not Available Not Available hydrocodone 7.5 mg-acetamin ophen 325 mg/15 mL oral solution 10/20 completed Not Available Not Available Not Available chlorhexidi ne gluconate 0.12 % mouthwash SWISH and EXPECTORA TE ONE-HALF fluid ounce TWICE DAILY FOR 30 seconds, expectora te, DO not swallow active Not Available Not Available No t Available hydrochloro thiazide 12.5 mg tablet TAKE 1 TABLET BY MOUTH EVERY DAY 10/20 completed Not Available Not Available Not Available estradiol 10 mcg vaginal tablet insert ONE tablet vaginally twice weekly ON mondays and active Not Available Not Available No t Available Vitals Date Recorded Body weight Body mass index (BMI) Body height Oxygen saturation Oxygen saturation in Arterial blood by Pulse oximetry Heart rate Respiratory rate Systolic blood pressure Diastolic blood pressure Provider Name and Address Organization Details Last Updated DateTime 4 00763.5 4 g 34.1 kg/m2 160.02 cm 97 % 97 % 76 /min 18 /min 138 mm[Hg] 80 mm[Hg] Katharina Fajardo [facility] 09:43:40 Social History Question Answer Notes LastModified by Organizat [employer] Details LastModified Time Tobacco Smoking Status Never Smoker Katharina Fajardo ilsa [facility] 10/20/2024 09:35:18 What Is Your Level Of Caffeine Consumption? None [email or web address] Information not available 10/20/2024 What Was The Date Of Your Most Recent Tobacco Screening? 10/20/2024 [email or web address] Information not available 10/20/2024 Has Tobacco Cessation Counseling Been Provided? No Information not available 10/20/2024 Sex: Unknown Functional Status Question Answer Note LastModified by Organizat ion Details LastModified Time Do you use any illicit or recreational drugs? No [email or web address] Information not available 10/20/2024 Do you or have you ever used any other forms of tobacco or nicotine? No [email or web address] Information not available 10/20/2024 What is your level of alcohol consumption? None [email or web address] Information not available 10/20/2024 Do you or have you ever used any nicotine-free cigarettes, vape, or chewing tobacco? No [email or web address] Information not available 10/20/2024 Mental Status None recorded. Family History Relationship Description Onset Age of this Age Resolved Age Notes LastModified by Organization Details LastModified Time Mother Diabetes mellitus [email or web address] Not available 2023 09:34:16 Mother Congestive heart failure Not available 2023 09:34:27 Mother Atrial fibrillation [email or web address] Not available 09/2024 09:34:34 Father Congestive heart failure [email or web address] Not available 2023 09:34:27 Sister Diabetes mellitus [email or web address] Not available 2023 09:34:45 Medical History No medical history recorded. Gynecological HistoryNo gynecological history recorded. Obstetrics History GPAL:G 0 P 0 0 0 0 Immunizations Vaccine Type Date Status Note Provider Nam e and Address Organization Details Recorded Time zoster recombinant 4 completed Katharina Fajardo ilsa [facility] 10/20/2024 09:31:00 COVID-19, mRNA, LNP-S, bivalent, PF, 50 mcg/0.5 mL or 25mcg/0.25 mL dose 3 completed Katharinamukesh rosenbaum, [facility] 10/20/2024 09:31:00 COVID-19, mRNA, LNP-S, PF, skylar-sucrose, 30 mcg/0.3 mL 4 completed Katharina Fajardo ilsa, [facility] 10/20/2024 09:31:00 Tdap 4 completed Katharina Fajardo null, [facility] 10/20/2024 09:31:00 Influenza, split virus, trivalent, PF 4 completed Katharina Fajardo ilsa, [facility] 10/20/2024 09:31:00 Td (adult), 2 Lf tetanus toxoid, preservative free, adsorbed 8 completed Katharina Scotty rosenbaum, [facility] 10/20/2024 09:31:00 Past Encounters Encounter ID Performer Location Encounter Start Date Encounter Closed Date Diagnosis/Indication Diagnosis SNOMED-CT Code Diagnosis ICD10 Code Diagnosis Note [id number] Faizan Levy DO [facility] ([facility] [address] [place] [id number] 10/20/2024 08:44:48 10/21/2024 11:41:43 Migraine 51281882 G43.909 Stable using Zolmitript an. Dysuria 04330180 R30.0 Counseled no infection on UA today, will send for cx. Increase water intake. Screening for malignant neoplasm of breast 758051872 Z12.39 Update Mammo. Adult heal th examination 617976864 Z00.00 Counseled on diet, exercise, mental health. Discussed age appropriat e cancer screenings . Essential hypertension 13527120 I10 10/20/24- hasn't needed BP meds since having weight loss after gastric sleeve in Aug 2024, monitoring BP closely at home. Health Concerns Section Related Observation LastModified by Organization Detai ls LastModified Time None Recorded Concern Status LastModified by Organization Details LastModified Time None Recorded Advance Directives Directive None Recorded Payers Insurance Date Sequence Insurance Name Policy Number Policy Ibarra Covered Member ID Ibarra Member ID Guarantor Name 11/30/2024 1 [employer] [id number] Lyssa Connell [id number] Lyssa Connell Notes Date Note Type Note Provider Name and Address Organization Details Recorded Time 10/20/2024 text/html Annual WellnessReported bypatient.Diet and Nutrition:healthy diet Fracture Risk:no history of fractures; no recent explained fracture; no sudden unexplained fractures; no previous musculoskeletal injuries Physical Activity:exercises on a regular basis; recent increase in physical activity; good physical condition Additional Lifestyle Factors:no tobacco use; no alcohol intake Depression Risk:never feels sad, empty, or tearful; no loss of interest in activities; no significant changes in weight; no sleep disturbances or insomnia; no agitation; no loss of energy; no feelings of worthlessness or guilt; no thoughts of suicide; no history of depression; no history of mood disorders Hearing:no loss of hearing Vision:no vision problems; wears corrective lenses Pt [facility] care, previously seeing [facility]. Gastric sleeve in [place] Aug 2024, without complications. Has last 37lbs. Taking vitamins.She has been able to come off antihypertensive meds since having weight loss surgery. Monitoring BP at home, running well. She has had 2 UTI's since her gastric sleeve surgery. First treated with Macrodantin, then Cipro.c/o foul odor present to urine and flank painDenies any fever/ chills/ body aching. Chronic constipation, taking stool softener daily. She has dx of migraines and takes Zolmitriptan 5 mg disintegrating tablet with no s/e or problems. Having headaches 2-3 times weekly at times, other times can go weeks without MILLER, averaging 3-5 MILLER per month, feels the Zolmitriptan helps significantly. Taking Estradiol for HRT. past surgeries, breast implants, cholecystectomy, deviated septum, total Hyst, gastric sleeve Fhx: CHF- mother and fatherDM - mother and sister Needing mammogram, last one 2 yrs ago, no current breast complaints. No prior colonoscopy, she did a cologuard 2 years ago with normal results, no current bowel complaints. Last had labs in Aug 2024, CBC, CMP with [facility].Lipid panel last Aug 2023 with [facility].No prior issues with cholesterol. she received 1st shingles vaccine last week, and flu and covid vaccines last monthshe is planning to get Hep A and pneumonia vaccine Evaluated by Derm 3-4 months ago, everything checked out fine. No recent hospitalizations or ER visits Faizan Levy, [address], [phone], [facility], [place] 10/31/2024 16:02:07 OBGyn Episode No OBEpisode recorded.
--- NOTE | 2025-05-09 10:37 | ECG_ITS ---
[facility] Date: 2025-05-09 Pat Name: Lyssa Connell Department: Room: Gender: Female Dish Washer: : 1965 Requested By: Irving Villegas Order Number: [id number] Aubrey MD: Sigifredo Fletcher M.D. Measurements Intervals Banner Rate: 82 P: 54 NJ: 161 QRS: 9 QRSD: 76 T: 61 QT: 349 QTc: 409 Interpretive Statements SINUS RHYTHM LOW QRS VOLTAGE IN PRECORDIAL LEADS [QRS DEFLECTION < 1.0 mV IN CHEST LEADS] Compared to ECG 07/01/2024 10:29:27 No significant changes Electronically Signed On 05-12-2025 09:09:06 CDT by Sigifredo Fletcher M.D. [email or web address]
--- NOTE | 2025-05-09 11:12 | CTR_ITS ---
PROCEDURE INFORMATION: Exam: CT Abdomen And Pelvis With Contrast Exam date and time: 05/09/2025 12:01 PM Age: 59 years old Clinical indication: Abdominal pain; Epigastric; Prior surgery; Surgery date: 6+ months; Surgery type: Gb; Additional info: Abd pain TECHNIQUE: Imaging protocol: Computed tomography of the abdomen and pelvis with contrast. Radiation optimization: All CT scans at this facility use at least one of these dose optimization techniques: automated exposure control; mA and/or kV adjustment per patient size (includes targeted exams where dose is matched to clinical indication); or iterative reconstruction. Contrast material: OMNI 350; Contrast volume: 100 ml; Contrast route: INTRAVENOUS (IV); COMPARISON: CT abdomen pelvis w con* [id number] 03/20/2021 10:13 AM RADIATION DOSE METRICS: Total DLP (mGy-cm): 578.48 FINDINGS: Lungs: Lung bases are clear as visualized. Liver: Normal. No mass. Gallbladder and biliary ducts: Status post cholecystectomy. Mild intra and extrahepatic biliary dilatation. Pancreas: Normal. No ductal dilation. Spleen: Normal. No splenomegaly. Adrenal glands: Normal. No mass. Kidneys and ureters: Normal. No hydronephrosis. Stomach and bowel: Postsurgical change of partial gastrectomy. Otherwise, no bowel obstruction or acute inflammation. Appendix: Appendix is dilated. Mild periappendiceal inflammatory change. No appreciable perforation or abscess. Intraperitoneal space: Unremarkable. No free air. No significant fluid collection. Vasculature: Unremarkable. No abdominal aortic aneurysm. Lymph nodes: Unremarkable. No enlarged lymph nodes. Urinary bladder: Unremarkable as visualized. Reproductive: Status post hysterectomy. Bilateral adnexae are unremarkable.. Unremarkable as visualized. Bones/joints: Unremarkable. No acute fracture. Soft tissues: Partially seen bilateral breast prostheses. No acute soft tissue abnormality. CT/CT abdomen pelvis w con* [id number] IMPRESSION: Acute, uncomplicated appendicitis.
--- NOTE | 2025-05-09 11:23 | ED_ITS ---
HPI - Abdominal Pain 2 General: Chief Complaint: Abdominal Pain Stated Complaint: lightheaded, dizzy, abd pain , low bp Time Seen by Provider: 05/09/25 11:09 Source: patient Mode of arrival: ambulatory Limitations: no limitations History of Present Illness: 59-year-old female present history gastr ic bypass last year states that this morning she is having some epigastric abdominal pain states the pain got severe and then got lightheaded and dizzy and nauseous. She states the lightheadedness is improved but still having some abdominal pain she rates a 5 out of 10. Denies any vomiting denies any fever denies any diarrhea. She denies any chest pain Associated Symptoms: Reports nausea; Denies chills, diarrhea, fever(s) and vomiting Related Data Home Medications ?Medication ?Instructions ?Recorded ?Confirmed zolmitriptan 5 mg disintegrating See Rx Instructions . Route 05/09/25 05/09/25 tablet .COMPLEX PRN Migraine Headac he Previous Rx's ?Medication ?Instructions ?Recorded CPAP #1 ea 11/23/21 Allergies Allergy/AdvReac Type Severity Reaction Status Date / Time No Known Allergies Allergy Verified 05/09/25 10:42 Review of Systems 2 Const: Denies: fever(s), chills, body aches or change in appetite ENMT: Denies: throat pain or dental pain Card: Denies: chest pain Resp: Denies: dyspnea GI: Reports: abdominal pain and nausea; Denies: vomiting or diarrhea Musc: Denies: neck pain or back pain Skin/Breast: Denies: rash Neuro: Denies: headache(s) All/Imm: Denies: urticaria PFSH ED 2 PFSH: Medical History Migraine Surgical History Status post laparoscopic cholecystectomy (03/29/21) History of pubovaginal sling 2008 Urethral sling, completed at the time of her hysterectomy-- due to urine frequency and minor stress incontinence H/O: hysterectomy (~2008) TVH/BSO with urethral sling, [facility]. History of nasal sinusotomy 2005 - Dr. Abebe [facility] History of augmentation mammoplasty 1995: [place], revision 2001 Family History Father Heart disease Diabetes Emphysema lung Mother Heart disease Hypertension Osteoporosis Family/Other Cancer maternal aunt -- breast cancer unknown age, but younger Social History Smoking and tobacco/nicotine status: never used tobacco/nicotine Substance/Drug Use: never Marital status: Female Reproductive History: Para: 2 Spontaneous abortions: No Physical Exam 2 Const: COMMON NORMALS: no acute distress, patient oriented x3 and healthy appearing HENMT: COMMON NORMALS: normocephalic and atraumatic HEAD & SCALP: n ormocephalic and atraumatic Eye: COMMON NORMALS: conjunctivae normal CONJUNCTIVA: Yes conjunctivae normal Neck/C-Spine: COMMON NORMALS: full ROM and supple Chest: COMMONS NORMALS: normal inspection of the chest Resp: COMMON NORMALS: normal respiratory effort, No retractions, No use of accessory muscles and clear to auscultation bilaterally AUSCULTATION: clear to auscultation bilaterally Cardio: COMMON NORMALS: regular rate, regular rhythm and No murmurs present (Cardio) RATE: regular rate RHYTHM: regular rhythm GI: COMMON NORMALS: Normal to inspection, nondistended, normoactive bowel sounds present, Soft to palpation and no masses PALPATION: Yes Soft to palpation OTHER: epigastric tenderness Extremity: COMMON NORMALS: normal to inspection and full ROM Neuro: COMMON NORMALS: patient oriented x3, moves all extremities and no focal motor deficits Psych: COMMON NORMALS: mental status grossly normal, Normal thought process present and cooperative THOUGHT PROCESS: Normal thought process present Skin: COMMON NORMALS: no rashes or lesions noted and no wounds GENERAL SKIN EXAM: no rashes or lesions noted Course 2 Vital Signs: Vital signs: Vital Signs Temperature 98.0 F 05/09/25 10:33 Pulse Rate 103 H 05/09/25 12:37 Respiratory Rate 16 05/09/25 12:37 Blood Pressure 104/49 05/09/25 12:37 Pulse Oximetry 95 05/09/25 12:37 Oxygen Delivery Me thod Room Air 05/09/25 12:37 MDM - Abdominal Pain Medical Decision Making Patient presents here with abdominal pain CT does show appendicitis spoke to surgeon on-call he will take to the OR. Medical Records I reviewed the patient's medical records. Lab Data I reviewed the patient's lab results. 05/09/25 11:23 05/09/25 11:23 Labs/Radiology: Radiology Impressions Abdomen/Pelvis CT 05/09/25 11:12 IMPRESSION: Acute, uncomplicated appendicitis. ADDENDUM: 05/09/25 1249 COMMENT: THIS REPORT CONTAINS FINDINGS THAT MAY BE CRITICAL TO PATIENT CARE. The exam findings were verbally communicated by me to STEVENSON MARTINEZ via telephone conference at 12:48 PM CDT on 05/09/2025. The findings were acknowledged and understood. Laboratory Results WBC 13.77 10^3/uL (3.29-11.43) H 05/09/25 11:23 RBC 4.72 10^6/uL (3.85-5.65) 05/09/25 11:23 Hgb 14.70 g/dL (11.27-16.99) 05/09/25 11:23 Hct 44.8 % (36-47) 05/09/25 11:23 MCV 94.9 fl (85-98) 05/09/25 11:23 MCH 31.1 pg (27-33) 05/09/25 11:23 MCHC 32.8 g/dL (30-55) 05/09/25 11:23 RDW 12.3 % (12.1-15.1) 05/09/25 11:23 Plt Count 207 10^3/cmm (157-399) 05/09/25 11:23 MPV 10.5 fL (7.4-10.4) H 05/09/25 11:23 Neut % (Auto) 86.1 % 05/09/25 11:23 Lymph % (Auto) 6.9 % 05/09/25 11:23 [place] % (Auto) 6.2 % 05/09/25 11:23 Eos % (Auto) 0.1 % 05/09/25 11:23 Baso % (Auto) 0.3 % 05/09/25 11:23 Neut # (Auto) 11.86 10^3/uL (1.8-7.7) H 05/09/25 11:23 Lymph # (Auto) 1.0 10^3/uL (0.8-4.8) 05/09/25 11:23 [place] # (Auto) 0.9 10^3/uL (0.2-0.9) 05/09/25 11:23 Eos # (Auto) 0.0 10^3/uL (0.0-0.8) 05/09/25 11:23 Baso # (Auto) 0.0 10^3/uL (0.0-0.1) 05/09/25 11:23 Nucleated RBC % (auto) 0 % 05/09/25 11:23 Nucleated RBCs # 0.0 /100WBC 05/09/25 11:23 Sodium 140 mmol/L (136-145) 05/09/25 11:23 Potassium 4.2 mmol/L (3.5-5.1) 05/09/25 11:23 Chloride 103 mmol/L (98-107) 05/09/25 11:23 Carbon Dioxide 23 mmol/L (22-29) 05/09/25 11:23 Anion Gap 18.2 (5-19) 05/09/25 11:23 BUN 17 mg/dL (6-20) 05/09/25 11:23 Creatinine 0.7 mg/dL (0.5-0.9) 05/09/25 11:23 GFR Calculation 86.2 mL/min (90-130) L 05/09/25 11:23 Glucose 101 mg/dL (65-115) 05/09/25 11:23 Calculated Osmolality 292 mOsm/kg (285-295) 05/09/25 11:23 Calcium 9.9 mg/dL (8.5-10.5) 05/09/25 11:23 Total Bilirubin 0.5 mg/dL (0.15-1.2) 05/09/25 11:23 AST 18 U/L (0-32) 05/09/25 11:23 ALT 15 U/L (0-33) 05/09/25 11:23 Alkaline Phosphatase 86 U/L (35-105) 05/09/25 11:23 Troponin T Baseline < 6 ng/L (0-10) 05/09/25 11:23 Total Protein 7.2 g/dL (6.6-8.7) 05/09/25 11:23 Albumin 4.6 g/dL (3.5-5.2) 05/09/25 11:23 Globulin 2.6 g/dL (1.3-4.6) 05/09/25 11:23 Lipase 36 U/L (13-60) 05/09/25 11:23 Urine Color Dark yellow (Yellow) A 05/09/25 11:12 Urine Appearance Clear (CLEAR) 05/09/25 11:12 Urine pH 5.0 (5-7) 05/09/25 11:12 Ur Specific [place] 1.031 (1.005-1.030) H 05/09/25 11:12 Urine Protein Trace (Negative) A 05/09/25 11:12 Urine Glucose (UA) Negative (Normal) 05/09/25 11:12 Urine Ketones Trace (Negative) 05/09/25 11:12 Urine Blood Negative (Negative) 05/09/25 11:12 Urine Nitrate Negative (Negative) 05/09/25 11:12 Urine Bilirubin Negative (Negative) 05/09/25 11:12 Urine Urobilinogen 1.0 mg/dL (Negative) 05/09/25 11:12 Ur Leukocyte Esterase Negative (Negative) 05/09/25 11:12 Urine RBC 3-5 /hpf (0-2) 05/09/25 11:12 Urine WBC 0-4 /hpf (0-5) H 05/09/25 11:12 Ur Squamous Epith Cells 0-4 /hpf (0-5) H 05/09/25 11:12 Calcium Oxalate Crystal 15-25 /hpf H 05/09/25 11:12 Amorphous Sediment Not Reportable 05/09/25 11:12 Urine Bacteria None /hpf (NONE) 05/09/25 11:12 Hyaline Casts 0-4 /lpf H 05/09/25 11:12 All radiology interpretation(s) finalized by discharge Discharge Plan Discharge Patient Disposition: Admitted As Inpatient Clinical Impression: Acute appendicitis Condition: Stable Coding Level of Care Code ED Manager Compliance for Marie Guillaume
[2025-05-09 11:36] LABS: Bilirubin Urine Negative (Negative); Blood Urine Negative (Negative); Glucose Urine UA Negative (Normal); Ketones Urine Trace (Negative); Leukocyte Esterase Urine Negative (Negative); Nitrate Urine Negative (Negative); Protein Urine Trace (Negative); Urine Appearance Clear (CLEAR); Urine Color Dark Yellow (Yellow)
[2025-05-09 11:41] LABS: Add Urine Microscopic? YES
[2025-05-09] MEDS: sodium chloride 0.9% 1,000 ML 999 ML IV (11:41)
[2025-05-09] MEDS: ondansetron 2 mg/ML SDV 2 mL 4 MG IVP (11:41)
[2025-05-09] MEDS: morphine 4 mg/mL SDV 1 mL IVP (11:41)
[2025-05-09 11:48] LABS: Basophils % 0.3 %; Eosinophils % 0.1 %; Hematocrit 44.8 % (36-47); Lymphocytes % 6.9 %; Mean Corpuscular HGB Conc 32.8 g/dL (30-55); Mean Corpuscular Hemoglobin 31.1 pg (27-33); Mean Corpuscular Volume 94.9 fl (85-98); Mean Platelet Volume 10.5 fL (7.4-10.4); Monocytes # 0.9 10^3/uL (0.2-0.9); Monocytes % 6.2 %; Neutrophils # 11.86 10^3/uL (1.8-7.7); Neutrophils % 86.1 %; Nucleated Red Blood Cells % 0 %; Platelet Count 207 10^3/cmm (157-399); Red Blood Count 4.72 10^6/uL (3.85-5.65); Red Cell Distribution Width 12.3 % (12.1-15.1); White Blood Count 13.77 10^3/uL (3.29-11.43)
[2025-05-09] MEDS: iohexol 350 mg/mL 500 mL Btl (per mL) IV (12:07)
[2025-05-09 12:08] LABS: Alanine Aminotransferase 15 U/L (0-33); Albumin Level 4.6 g/dL (3.5-5.2); Alkaline Phosphatase 86 U/L (35-105); Anion Gap 18.2 (5-19); Aspartate Amino Transferase 18 U/L (0-32); Blood Urea Nitrogen 17 mg/dL (6-20); Calcium 9.9 mg/dL (8.5-10.5); Carbon Dioxide 23 mmol/L (22-29); Chloride 103 mmol/L (98-107); Globulin 2.6 g/dL (1.3-4.6); Glomerular Filtration Rate 86.2 mL/min (90-130); Glucose 101 mg/dL (65-115); Lipase 36 U/L (13-60); Osmolality Calculated 292 mOsm/kg (285-295); Potassium 4.2 mmol/L (3.5-5.1); Sodium 140 mmol/L (136-145); Total Bilirubin 0.5 mg/dL (0.15-1.2); Total Protein 7.2 g/dL (6.6-8.7)
[2025-05-09 12:09] LABS: Troponin(5th) Baseline < 6 ng/L (0-10)
[2025-05-09 12:11] LABS: Calcium Oxalate Crystals Urine 15-25 /hpf; Hyaline Casts Urine 0-4 /lpf; Specific Gravity, Urine 1.031 (1.005-1.030); Squamous Epithelial Cell Urine 0-4 /hpf (0-5); UA Manual Slide Review YES; UA Slide Review UA Slide Review Perf; WBC Urine 0-4 /hpf (0-5)
[2025-05-09] MEDS: piperacillin-tazobactam 3.375 GM in sodium chloride 0.9% (plus) 50 ML IV (13:10)
--- NOTE | 2025-05-09 13:18 | P.HP_ITS ---
Providers/Chief Complaint 2 Primary Care Provider: Faizan Levy DO Chief Complaint: lightheaded, dizzy, abd pain , low bp History of Present Illness Lyssa Connell is a 59 year old female who presents to the hospital with abdominal pain that mesogastric radiating to her right lower quadrant the pain started this morning, CT scan shows evidence of acute complicated appendicitis. There is appendicolith at the base of the appendix. Review of Systems 2 General: Reports: 10 or more systems reviewed and unremarkable except in HPI and below Medications/Allergies Home Medications ?Medication ?Instructions ?Recorded ?Confirmed ?Last Taken ?Type CPAP #1 ea 11/23/21 05/09/25 Unkn own Rx zolmitriptan 5 mg disintegrating See Rx Instructions . Route 05/09/25 05/09/25 Unknown History tablet .COMPLEX PRN Migraine Headac he Allergies Allergy/AdvReac Type Severity Reaction Status Date / Time No Known Allergies Allergy Verified 05/09/25 10:42 PFSH Acute 2 PFSH: Medical History Migraine Surgical History Status post laparoscopic cholecystectomy (03/29/21) History of pubovaginal sling 2008 Urethral sling, completed at the time of her hysterectomy-- due to urine frequency and minor stress incontinence H/O: hysterectomy (~2008) TVH/BSO with urethral sling, [facility]. History of nasal sinusotomy 2004 - Dr. Abebe, [facility] History of augmentation mammoplasty 1994: [facility], revision 2001 Family History Father Heart disease Diabetes Emphysema lung Mother Heart disease Hypertension Osteoporosis Family/Other Cancer maternal aunt -- breast cancer unknown age, but younger Social History Smoking and tobacco/nicotine status: never used tobacco/nicotine Substance/Drug Use: never Marital status: Female Reproductive History: Para: 2 Spontaneous abortions: No Vitals/I&O/Wt Last Vital Signs Temp 98.0 F 05/09/25 10:33 Pulse 103 H 05/09/25 12:37 Resp 16 05/09/25 12:37 BP 104/49 05/09/25 12:37 Pulse Ox 95 05/09/25 12:37 O2 Del Method Room Air 05/09/25 12:37 Weight last 48 hrs Weight 158 lb Physical Exam 2 Narrative: General : Patient is well developed , no acute distress, oriented x3 Head : Normal cephalic, a-traumatic. Nose : Mucous membranes are without erythema. Lungs : Equal chest rise bilaterally, no use of accessory muscles, trachea is midline. CV : Rate and rhythm are normal. Abdomen : Soft, ND, NT, no g/r/m Extremities : No edema. Upper extremities are normal bilaterally. Back : non-tender to palpation, no CVA tenderness. Data 05/09/25 11:23 05/09/25 11:23 A&P Assessment and plan (1) Acute appendicitis: Plan Patient has acute appendicitis verified by imaging. After discussion of all risk benefits we have decided to proceed with a laparoscopic appendectomy. I discussed the risks of bleeding, infection, intra-abdominal access, injury to the surrounding structures including the colon and small bowel ureter and great vessels. Need for additional interventions, need for transfer to higher level of care, need to conversion to open procedure in September 10 100 patients. Hernia formation. Patient shows understanding agrees with the plan. She will be kept n.p.o. and we will attempt to take her to the OR in the next hour or so. I have requested a dose of Zosyn and some Toradol for pain control. PDMP PDMP Reviewed: Not Reviewed Attestations 2 Medical Necessity Statement*: Patient will likely be discharged after surgery. Coding Level of Care Code Acute Code for [facility] Diagnoses Acute appendicitis K35.80
[2025-05-09 13:33] LABS: Troponin 5 2HR < 6.0 ng/L (0-10); Troponin 5 2HR Delta 0 ABS# (0-10)
--- NOTE | 2025-05-09 13:56 | P.ANESASSM_ITS ---
Pre-Anesthetic Assessment Height/Weight: Height 5 ft 4 in Weight 158 lb Temp Pulse Resp BP Pulse Ox O2 Del Method 98.7 F 98 16 114/79 97 Room Air 05/09/25 13:35 05/09/25 13:35 05/09/25 13:35 05/09/25 13:35 05/09/25 13:35 05/09/25 13:35 Preop Diagnosis: Acute appendicitis Operation Date: 05/09/25 12:55 Proposed Procedures p Laparoscopic Appendectomy(Not Applicable) - Gigi Ambrocio MD Was Beta Maria Del Rosario taken within 24 hours: N/A Was Clonidine taken within 24 hours: N/A Last intake: Intake Last Liquid Date 05/09/25 Last Liquid Time 09:00 Last Solid Date 05/09/25 Last Solid Time 09:00 Social No alcohol and No tobacco Exam alert, oriented x 3, clear to auscultation bilaterally and regular rate & rhythm Airway Submandibular: within normal limits Cervical ROM: within normal limits Mallampati: Class III Dentition: full Anesthetic Plan ASA status: 2E Anesthesia: General Other: No prior issues with anesthesia Patient states that she stopped sipping on a protein shake around 9 AM this morning History of TIMBO, wears CPAP Patient had a gastric sleeve in August of last year and states she has lost a significant amount of weight since that time Prior history of hypertension but blood pressure has since improved since weight loss Labs reviewed, leukocytosis noted Plan for GETA with RSI Medications/Allergies Home Medications ?Medication ?Instructions ?Recorded ?Confirmed ?Last Taken ?Type CPAP #1 ea 11/23/21 05/09/25 Unkn own Rx zolmitriptan 5 mg disintegrating See Rx Instructions . Route 05/09/25 05/09/25 Unknown History tablet .COMPLEX PRN Migraine Headac he Allergies Allergy/AdvReac Type Severity Reaction Status Date / Time No Known Allergies Allergy Verified 05/09/25 10:42 [facility] Medical History Migraine Surgical History Status post laparoscopic cholecystectomy (03/29/21) History of pubovaginal sling 2008 Urethral sling, completed at the time of her hysterectomy-- due to urine frequency and minor stress incontinence H/O: hysterectomy (~2008) TVH/BSO with urethral sling, [facility]. History of nasal sinusotomy 2004 - Dr. Abebe [facility] History of augmentation mammoplasty 1994: Sal[facility], revision 2001 Family History Father Heart disease Diabetes Emphysema lung Mother Heart disease Hypertension Osteoporosis Family/Other Cancer maternal aunt -- breast cancer unknown age, but younger Social History Smoking and tobacco/nicotine status: never used tobacco/nicotine Substance/Drug Use: never Marital status: Female Reproductive History Para: 2 Spontaneous abortions: No Data Anesthesia 05/09/25 11:23 05/09/25 11:23 Short CBC 05/09/25 Range/Units 11:23 WBC 13.77 H (3.29-11.43) 10^3/uL Hgb 14.70 (11.27-16.99) g/dL Hct 44.8 (36-47) % MCV 94.9 (85-98) fl Plt Count 207 (157-399) 10^3/cmm Neut % (Auto) 86.1 % Neut # (Auto) 11.86 H (1.8-7.7) 10^3/uL BMP 05/09/25 11:23 Sodium 140 Potassium 4.2 Chloride 103 Carbon Dioxide 23 BUN 17 Creatinine 0.7 Glucose 101 Calcium 9.9 Cardiac Enzymes 05/09/25 05/09/25 Range/Units 11:23 13:08 Troponin T Baseline < 6 (0-10) ng/L Troponin T 120 Minute < 6.0 (0-10) ng/L Delta Troponin T 0 (0-10) ABS# Liver Function 05/09/25 Range/Units 11:23 Total Bilirubin 0.5 (0.15-1.2) mg/dL AST 18 (0-32) U/L ALT 15 (0-33) U/L Alkaline Phosphatase 86 (35-105) U/L Albumin 4.6 (3.5-5.2) g/dL Urine 05/09/25 Range/Units 11:12 Urine Color Dark yellow A (Yellow) Urine Appearance Clear (CLEAR) Urine pH 5.0 (5-7) Ur Specific [place] 1.031 H (1.005-1.030) Urine Protein Trace A (Negative) Urine Glucose (UA) Negative (Normal) Urine Ketones Trace (Negative) Urine Nitrate Negative (Negative) Urine Bilirubin Negative (Negative) Ur Leukocyte Esterase Negative (Negative) Urine RBC 3-5 (0-2) /hpf Urine WBC 0-4 H (0-5) /hpf
[2025-05-09] MEDS: lidocaine-epi 1% 20 mL INJ INJECTION (15:12)
[2025-05-09] MEDS: BUPivacaine 0.25% INJ 30 mL INJECTION (15:12)
--- NOTE | 2025-05-09 15:16 | P.OP_ITS ---
Operative Report Date of procedure: May 09, 2025 Pre-op diagnosis: Acute appendicitis Post-op diagnosis: Same Post-op findings: Inflamed appendix with dilated base located in a retrocecal but intraperitoneal position. Procedure done: Laparoscopic appendectomy Specimens removed/disposition: Appendix Surgeon: Gigi Ambrocio MD Adventure Therapist: LENNIE OR STaff Estimated blood loss: 5 Complications: none apparent Brief History: 59-year-old female presenting with abdominal pain to the ER, acute appendicitis was confirmed with CT scan of the abdomen pelvis. After discussion all risk benefits documented made. Now we proceed to the OR for laparoscopic possible open appendectomy. Procedure: Patient was brought into the OR, she was placed in a supine position. General anesthesia was given. The abdomen was prepped and draped in the usual sterile fashion and a timeout was conducted. The abdomen was accessed via a 5 mm Optiview trocar in the left upper quadrant. Initial pneumoperitoneum was obtained and no evidence of visceral injury during entry was noted. Additional 5 mm trocar was placed in the suprapubic position and a 12 mm trocar was placed in the infraumbilical location under direct visualization. Patient was placed in a steep Trendelenburg with the left side down. There was some inflammatory fluid in the right lower quadrant. I was able to identify the base of the appen matt which appeared hyperemic. Following the base of the appendix I was able to identify the appendix in the retrocecal position. Since this was impossible to liberated deep at this time I decided to create a window on the base of the appendix using the [place]. Once the window was created I used the LigaSure to carefully take down the meso appendix in a retrograde fashion until the tip was liberated. The complete mesoappendix was taken down with LigaSure. The base of the appendix was healthy but appeared dilated. I transected at that level with a 45 mm blue load Endo ALIX stapler. The staple line appeared healthy and hemostatic. The appendix was retrieved from the abdomen via the umbilical trocar site with an Endo Catch bag. The appendiceal bed was irrigated and suctioned. Hemostasis was once again verified. Omentum was pulled down to cover the staple line of the appendix. The infraumbilical trocar was removed and the trocar site was closed with #0 Vicryl using a Stanford-Yuko suture passer under direct visualization. The suprapubic trocar was removed under direct visualization, the left upper quadrant trocar was used to evacuate the pneumoperitoneum and subsequently removed. Local anesthesia was infiltrated in the wounds. Hemostasis was verified. The wounds were closed in layers using #3-0 Vicryl for subcutaneous tissue #4 Monocryl for the skin and Dermabond was applied. At the end of the procedure all counts were correct the patient tolerated well the procedure was transferred to the PACU in stable condition.
--- NOTE | 2025-05-09 17:06 | ANE.PACU2 ---
Inpatient post-anesthesia follow up: Airway intact: Yes Vital signs: Temperature 97.5 F Pulse Rate 92 Respiratory Rate 16 Blood Pressure 96/59 Pulse Oximetry 92 Oxygen Delivery Me thod Room Air Oxygen Flow Rate Fraction of Inspir ed Oxygen Hydration adequate: Yes Nausea and vomiting: No Pain level: 2 Mental status: Baseline
== END 2025-05-09 17:06 | disposition home or self-care (01) ==
LOC: ER 12:53 → OR 13:10
PROVIDERS: Family Medicine; Emergency Provider Emergency Medicine; PCP Electrodiagnostic Medicine; Visit Provider Surgery
PROC: 0DTJ4ZZ Resection of Appendix, Percutaneous Endoscopic Approach (ICD-10-PCS; CPT 44970; principal; 2025-05-09 12:45)
DX: K35.80 Unspecified acute appendicitis (principal); G47.33 Obstructive sleep apnea (adult) (pediatric); I10 Essential (primary) hypertension; Z98.84 Bariatric surgery status
CPT/HCPCS: 44970; 36415; 74177; 80053; 81001; 83690; 84484; 85025; 88304; 93005; J0330; J1100; J1885; J2250; J2270; J2405; J2543; J2704; J3010; J3490; J7030; J9999

== ENCOUNTER → 2025-07-11 10:34 | Outpatient (BNVA) | payer OTHER, SELFPAY | PROVIDERS: PCP Electrodiagnostic Medicine; Visit Provider Registered Nurse Neonatal Intensive Care | DX: J02.9 Acute pharyngitis, unspecified (principal); R39.9 Unspecified symptoms and signs involving the genitourinary system | CPT/HCPCS: 81000; 87086 ==

== ENCOUNTER → 2025-07-24 10:28 | Outpatient (BNVA) | payer OTHER, SELFPAY | PROVIDERS: PCP Electrodiagnostic Medicine; Visit Provider Emergency Medicine | DX: R39.9 Unspecified symptoms and signs involving the genitourinary system (principal) | CPT/HCPCS: 81000; 87086 ==